=== PATIENT | female | born 1990 | race Caucasian/White ===

== ENCOUNTER 2016-04-13 18:52 | Emergency (ER) | payer MEDICAID ==
[~2016-04-13] VITALS: Ht 157.5 cm; Wt 105.5 kg
[~2016-04-13 18:52] MED LIST: ALAVERT10 M1 PO; ATOXIMETIN-B1 CAP PO; BCP TD; CORTISPORIN OTI10 ML OT; DUO-KAPS1 CAP PO; FLEXERIL 1010 MG/TAB PO; FLEXERIL10 MG PO; IBU-8800 MG PO; LORTAB 5/500 501 TAB PO; MOTRIN 600600 MG/TAB PO; MOTRIN800 MG PO; NO HOME MEDICATIONS; NORCO 325 MG-51 TAB PO; PHENERGAN 25 TA25 MG PO; PREDNISONE10 MG PO; PRENATAL VITAMI1 TAB PO; PREVACID30 MG PO; PROAIR HFA0.09 MG/AC IH; REGLAN 10MG10 MG/TAB PO; ROBAXIN 50500 MG/TAB PO; TESSALON PERLE200 MG PO; ULTRAM 50MG TAB50 MG PO; VENTOLIN0.09 MG IH; VICODIN 5/5001 UDTAB PO; WELLBUTRIN PO; ZITHROMAX Z PA250 MG PO; ZOFRAN ODT4 MG PO; ZOFRAN8 MG PO
[2016-04-13 18:54] VITALS: BP 104/58; TEMP 98
[2016-04-13] MEDS ORDERED: FLAGYL500 MG PO (18:58)
[2016-04-13] MEDS ORDERED: PRENATAL FORMU1 EAC3 PO (18:59)
[2016-04-13 21:22] LABS: PH 5 (5-8); URINE APPEARANCE Hazy; URINE BACTERIA None Seen /hpf; URINE BILIRUBIN Negative (NEGATIVE); URINE BLOOD Negative (NEGATIVE); URINE COLOR Yellow; URINE GLUCOSE Negative (NEGATIVE); URINE KETONE 2+ (NEGATIVE); URINE RBC 0-2 /hpf; URINE UROBILINOGEN Negative (NEGATIVE); URINE WBC 0-2 /hpf
[2016-04-13] MEDS ORDERED: PHENERGAN 25 TA25 MG PO (21:45)
[2016-04-13 21:59] VITALS: PULSE 96
== END 2016-04-13 21:59 | disposition home or self-care (01) ==
LOC: COL.ER 18:52
PROVIDERS: Emergency Medicine
DX: O21.9 Vomiting of pregnancy, unspecified (principal); Z3A.13 13 weeks gestation of pregnancy; R10.816 Epigastric abdominal tenderness
CPT/HCPCS: J2550; J7030

== ENCOUNTER 2016-05-01 09:10 | Emergency (ER) | payer MEDICAID ==
[~2016-05-01] VITALS: Ht 157.5 cm; Wt 105.5 kg
[~2016-05-01 09:10] MED LIST changes: +FLAGYL500 MG PO; +PRENATAL FORMU1 EAC3 PO
[2016-05-01 09:12] VITALS: TEMP 97.5
[2016-05-01] MEDS ORDERED: PRENATAL FORMU1 EAC3 PO (09:16)
[2016-05-01 10:25] LABS: HEMOGLOBIN 12.5 g/dl (12.5-16.0); MEAN CELL VOLUME 87 fl (80.0-100.0); MEAN CORPUSCULAR HEMOGLOBIN 30 pg (27.0-31.0); MEAN CORPUSCULAR HGB CONC 34 g/dl (33.0-37.0); PLATELET COUNT 217 K/mm3 (130-400); RED BLOOD COUNT 4.19 M/mm3 (4.10-5.30); REDCELL DISTRIBUTION WIDTH-CV 13.3 % (11.5-14.5)
[2016-05-01 10:30] LABS: HEMATOCRIT 36.4 % (37.0-47.0)
[2016-05-01 10:31] LABS: ADD PATHOLOGY DIFF REVIEW NO
[2016-05-01 10:33] LABS: ADJUSTED CALCIUM 9.3 mg/dL (8.4-10.2); ALBUMIN 3.9 gm/dL (3.5-5.0); BILIRUBIN,TOTAL 0.7 mg/dL (0.0-1.0); CALCIUM 9.2 mg/dL (8.4-10.2); CREATININE, serum 0.52 mg/dL (0.52-1.25); POTASSIUM 4.2 mmol/L (3.4-5.0); TOTAL PROTEIN 7.5 gm/dL (6.4-8.2)
[2016-05-01 10:55] LABS: BAND 17 % (0-10); NEUTROPHILS 78 % (42.0-75.2); PLATELET ESTIMATE NORMAL (NORMAL); TOTAL CELLS COUNTED 100
[2016-05-01 11:08] LABS: PH 5 (5-8); URINE APPEARANCE Cloudy; URINE BACTERIA Rare /hpf; URINE BILIRUBIN Negative (NEGATIVE); URINE BLOOD Negative (NEGATIVE); URINE COLOR Yellow; URINE GLUCOSE Negative (NEGATIVE); URINE KETONE Negative (NEGATIVE); URINE RBC 0-2 /hpf; URINE UROBILINOGEN Negative (NEGATIVE)
[2016-05-01] MEDS ORDERED: REGLAN 10MG10 MG/TAB PO (11:20)
[2016-05-01 11:53] VITALS: BP 112/71; PULSE 69
== END 2016-05-01 11:52 | disposition home or self-care (01) ==
LOC: COL.ER 09:10
PROVIDERS: Nurse Practitioner
DX: O99.612 Diseases of the digestive system complicating pregnancy, second trimester (principal); K52.9 Noninfective gastroenteritis and colitis, unspecified; Z3A.15 15 weeks gestation of pregnancy
CPT/HCPCS: J2765; J7030

== ENCOUNTER 2016-07-14 12:04 | Emergency (ER) | payer MEDICAID ==
[~2016-07-14] VITALS: Ht 157.5 cm; Wt 105.5 kg
[2016-07-14 12:05] VITALS: TEMP 98.8
[2016-07-14 14:58] LABS: PH 6 (5-8); URINE APPEARANCE Hazy; URINE BACTERIA Moderate /hpf; URINE BILIRUBIN Negative (NEGATIVE); URINE BLOOD Negative (NEGATIVE); URINE COLOR Yellow; URINE GLUCOSE Negative (NEGATIVE); URINE KETONE Negative (NEGATIVE); URINE RBC 0-2 /hpf; URINE UROBILINOGEN Negative (NEGATIVE)
[2016-07-14 15:03] VITALS: BP 112/64; PULSE 88
== END 2016-07-14 15:04 | disposition home or self-care (01) ==
LOC: COL.ER 12:04
PROVIDERS: Emergency Medicine
DX: O99.512 Diseases of the respiratory system complicating pregnancy, second trimester (principal); J20.9 Acute bronchitis, unspecified; Z3A.26 26 weeks gestation of pregnancy
CPT/HCPCS: J1885; J2550

== ENCOUNTER 2016-08-09 16:27 | Outpatient (CLI) | payer MEDICAID ==
[~2016-08-09] VITALS: Ht 157.5 cm; Wt 109.1 kg
[2016-08-09 17:07] VITALS: BP 117/71; PULSE 86; TEMP 98.1
[2016-08-09 17:25] VITALS: BP 117/71; PULSE 86; TEMP 98.1
== END 2016-08-09 17:25 | disposition home or self-care (01) ==
LOC: LDRO 16:27
DX: O62.2 Other uterine inertia (principal); Z3A.29 29 weeks gestation of pregnancy

== ENCOUNTER 2016-09-06 16:09 | Outpatient (CLI) | payer MEDICAID ==
[~2016-09-06] VITALS: Ht 160 cm; Wt 110.0 kg
[2016-09-06 16:32] VITALS: BP 110/59; PULSE 96; TEMP 98.9
[2016-09-06 16:59] VITALS: BP 110/59; PULSE 96; TEMP 98
== END 2016-09-06 16:57 | disposition home or self-care (01) ==
LOC: LDRO 16:09
DX: O99.89 Other specified diseases and conditions complicating pregnancy, childbirth and the puerperium (principal); R10.30 Lower abdominal pain, unspecified; Z3A.33 33 weeks gestation of pregnancy; Z87.891 Personal history of nicotine dependence

== ENCOUNTER 2016-09-11 22:21 | Outpatient (CLI) | payer MEDICAID ==
[~2016-09-11] VITALS: Ht 157.5 cm; Wt 110.9 kg
[2016-09-11 23:10] VITALS: BP 116/68; PULSE 86; TEMP 97.9
== END 2016-09-11 23:57 | disposition home or self-care (01) ==
LOC: LDRO 22:21
DX: O62.9 Abnormality of forces of labor, unspecified (principal); Z3A.39 39 weeks gestation of pregnancy

== ENCOUNTER 2016-09-18 14:23 | Outpatient (CLI) | payer MEDICAID ==
[~2016-09-18] VITALS: Ht 157.5 cm; Wt 110.9 kg
[2016-09-18 14:42] VITALS: BP 131/78; PULSE 93; TEMP 99
[2016-09-18 15:00] VITALS: BP 131/78; PULSE 93; TEMP 99
[2016-09-18 15:37] VITALS: BP 132/75; PULSE 86
== END 2016-09-18 15:40 | disposition home or self-care (01) ==
LOC: LDRO 14:23 → LDR 14:25 → LDRO 15:40
DX: Z34.83 Encounter for supervision of other normal pregnancy, third trimester (principal); Z87.891 Personal history of nicotine dependence; Z3A.35 35 weeks gestation of pregnancy
CPT/HCPCS: OP

== ENCOUNTER 2016-09-18 22:00 | Outpatient (CLI) | payer MEDICAID ==
[~2016-09-18] VITALS: Ht 157.5 cm; Wt 110.9 kg
[2016-09-18 22:30] VITALS: BP 124/74; PULSE 69; TEMP 98
[2016-09-18 23:31] LABS: PH 6 (5-8); URINE APPEARANCE Hazy; URINE BACTERIA None Seen /hpf; URINE BILIRUBIN Negative (NEGATIVE); URINE BLOOD 2+ (NEGATIVE); URINE COLOR Yellow; URINE GLUCOSE Negative (NEGATIVE); URINE KETONE Negative (NEGATIVE); URINE RBC 20-50 /hpf; URINE UROBILINOGEN Negative (NEGATIVE)
[2016-09-19 01:30] VITALS: BP 123/74; PULSE 60; TEMP 97.8
== END 2016-09-19 02:05 | disposition home or self-care (01) ==
LOC: LDRO 22:00
PROVIDERS: Obstetrics & Gynecology
DX: O99.89 Other specified diseases and conditions complicating pregnancy, childbirth and the puerperium (principal); R10.30 Lower abdominal pain, unspecified; M54.9 Dorsalgia, unspecified; Z3A.35 35 weeks gestation of pregnancy
CPT/HCPCS: J2550; J7120

== ENCOUNTER → 2016-09-19 | Outpatient (CLI) | payer MEDICAID ==
[~2016-09-19] MED LIST changes: +IBU600 MG PO
== END ==
LOC: COL.RAD 12:40
DX: R31.21 Asymptomatic microscopic hematuria (principal); N13.30 Unspecified hydronephrosis

== ENCOUNTER 2016-09-24 05:27 | Inpatient (IN) | payer MEDICAID ==
[~2016-09-24] VITALS: Ht 157.5 cm; Wt 110.9 kg
[2016-09-24] VITALS (21 sets, daily range): BP systolic 91–139; BP diastolic 36–81; PULSE 62–85; TEMP 97.3–98.2
[~2016-09-24 05:27] MED LIST changes: -IBU600 MG PO
[2016-09-24 07:35] LABS: BASO % 0.3 % (0.0-2.0); EOS # 0.1 (0.0-0.7); EOS % 0.5 % (0-4.0); GRAN # 11.7 (1.4-6.5); LYMPH # 2.1 (1.2-3.4); LYMPH % 14.5 % (20.0-51.0); MEAN CELL VOLUME 86 fl (80.0-100.0); MEAN CORPUSCULAR HGB CONC 34 g/dl (33.0-37.0); MEAN PLATELET VOLUME 11.7 fl (7.4-10.4); MONO # 0.6 (0.1-0.6); MONO % 3.9 % (1.7-9.3); PLATELET COUNT 173 K/mm3 (130-400); REDCELL DISTRIBUTION WIDTH-CV 13.5 % (11.5-14.5); WHITE BLOOD COUNT 14.6 K/mm3 (4.8-10.8)
[2016-09-24 07:50] LABS: HEMATOCRIT 33.4 % (37.0-47.0); HEMOGLOBIN 11.5 g/dl (12.5-16.0); MEAN CORPUSCULAR HEMOGLOBIN 29 pg (27.0-31.0)
[2016-09-25 03:00] VITALS: BP 123/69; PULSE 72; TEMP 98.1
[2016-09-25 08:30] VITALS: BP 117/75; PULSE 65; TEMP 97.5
[2016-09-25 16:00] VITALS: BP 117/72; PULSE 74; TEMP 97.5
[2016-09-25 21:00] VITALS: BP 123/78; PULSE 70; TEMP 98.8
[2016-09-26 08:55] VITALS: BP 120/78; PULSE 92; TEMP 98.1
[2016-09-26] MEDS ORDERED: IBU600 MG PO (09:39)
[2016-09-26 19:45] VITALS: BP 122/80; PULSE 79; TEMP 98.4
== END 2016-09-26 20:00 | disposition home or self-care (01) | DRG 775 ==
LOC: LDRO 05:27 → LDR 07:03 → OB 18:20
PROVIDERS: Obstetrics & Gynecology
PROC: 10E0XZZ Delivery of Products of Conception, External Approach (ICD-10-PCS; principal; 2016-09-24)
PROC: 0HQ9XZZ Repair Perineum Skin, External Approach (ICD-10-PCS; 2016-09-24)
DX: O60.14X0 Preterm labor third trimester with preterm delivery third trimester, not applicable or unspecified (principal); O70.0 First degree perineal laceration during delivery; Z3A.36 36 weeks gestation of pregnancy; Z37.0 Single live birth
CPT/HCPCS: J0690; J2590; J2795; J7120

== ENCOUNTER 2017-03-10 13:33 | Emergency (ER) | payer SELFPAY ==
[~2017-03-10] VITALS: Ht 157.5 cm; Wt 104.5 kg
[~2017-03-10 13:33] MED LIST changes: +IBU600 MG PO
[2017-03-10 13:35] VITALS: TEMP 98.2
[2017-03-10 13:57] LABS: COLLECTION METHOD CLEAN CATCH
[2017-03-10 14:02] LABS: MUCOUS Present /lpf; PH 5 (5-8); SQUAMOUS EPITHELIAL 0-2 /hpf; URINE APPEARANCE Clear; URINE BACTERIA Rare /hpf; URINE BILIRUBIN Negative (NEGATIVE); URINE BLOOD 3+ (NEGATIVE); URINE COLOR Yellow; URINE GLUCOSE Negative (NEGATIVE); URINE KETONE Negative (NEGATIVE); URINE LEUKOCYTE ESTERASE Negative (NEGATIVE); URINE NITRATE Negative (NEGATIVE); URINE PROTEIN(semi-quant) Negative (NEGATIVE); URINE UROBILINOGEN Negative (NEGATIVE)
[2017-03-10 15:19] LABS: BASO % 0.2 % (0.0-2.0); EOS # 0.3 (0.0-0.7); EOS % 3.1 % (0-4.0); GRAN # 5.5 (1.4-6.5); GRAN % 61.7 % (42.2-75.2); HEMATOCRIT 40.9 % (37.0-47.0); HEMOGLOBIN 13.3 g/dl (12.5-16.0); LYMPH # 2.7 (1.2-3.4); MEAN CELL VOLUME 84 fl (80.0-100.0); MEAN CORPUSCULAR HEMOGLOBIN 27 pg (27.0-31.0); MEAN CORPUSCULAR HGB CONC 33 g/dl (33.0-37.0); MEAN PLATELET VOLUME 10.8 fl (7.4-10.4); MONO # 0.4 (0.1-0.6); MONO % 4.8 % (1.7-9.3); PLATELET COUNT 247 K/mm3 (130-400); RED BLOOD COUNT 4.87 M/mm3 (4.10-5.30); REDCELL DISTRIBUTION WIDTH-CV 14.4 % (11.5-14.5)
[2017-03-10 15:43] LABS: ALBUMIN 4.5 gm/dL (3.5-5.0); BILIRUBIN,TOTAL 0.2 mg/dL (0.0-1.0); C-REACTIVE PROTEIN 0.6 mg/dL (0.0-0.9); CALCIUM 9.6 mg/dL (8.4-10.2); CREATININE, serum 0.74 mg/dL (0.52-1.25); POTASSIUM 4.2 mmol/L (3.4-5.0); TOTAL PROTEIN 7.7 gm/dL (6.4-8.2)
[2017-03-10] MEDS ORDERED: ZOFRAN ODT4 MG PO (17:09)
[2017-03-10 17:35] VITALS: BP 120/82; PULSE 64
== END 2017-03-10 17:35 | disposition home or self-care (01) ==
LOC: COL.ER 13:33
PROVIDERS: Nurse Practitioner
DX: R10.30 Lower abdominal pain, unspecified (principal); F32.9 Major depressive disorder, single episode, unspecified; F17.210 Nicotine dependence, cigarettes, uncomplicated; Z90.49 Acquired absence of other specified parts of digestive tract
CPT/HCPCS: J1885; J2405; J7030

== ENCOUNTER 2018-09-08 08:30 | Emergency (ER) | payer MEDICAID ==
[~2018-09-08] VITALS: Ht 160 cm; Wt 109.1 kg
[2018-09-08 08:41] VITALS: TEMP 97.3
[2018-09-08] MEDS ORDERED: FLEXERIL 1010 MG/TAB PO (09:06)
[2018-09-08 09:34] VITALS: BP 108/64; PULSE 68
== END 2018-09-08 09:38 | disposition home or self-care (01) ==
LOC: COL.ER 08:30
DX: M54.5 Low back pain (principal); Z90.49 Acquired absence of other specified parts of digestive tract

== ENCOUNTER 2018-09-25 10:36 | Emergency (ER) | payer MEDICAID ==
[~2018-09-25] VITALS: Ht 160 cm; Wt 108.2 kg
[2018-09-25 11:20] LABS: COLLECTION METHOD CLEAN CATCH
[2018-09-25 11:28] LABS: BASO % 0.2 % (0.0-2.0); EOS # 0.1 (0.0-0.7); EOS % 0.8 % (0-4.0); GRAN # 7.4 (1.4-6.5); GRAN % 77.1 % (42.2-75.2); HEMATOCRIT 38.7 % (37.0-47.0); HEMOGLOBIN 13.1 g/dl (12.5-16.0); LYMPH # 1.7 (1.2-3.4); LYMPH % 17.5 % (20.0-51.0); MEAN CELL VOLUME 89 fl (80.0-100.0); MEAN CORPUSCULAR HEMOGLOBIN 30 pg (27.0-31.0); MEAN CORPUSCULAR HGB CONC 34 g/dl (33.0-37.0); MEAN PLATELET VOLUME 10.4 fl (7.4-10.4); MONO # 0.4 (0.1-0.6); MONO % 4.2 % (1.7-9.3); PLATELET COUNT 219 K/mm3 (130-400); RED BLOOD COUNT 4.36 M/mm3 (4.10-5.30); REDCELL DISTRIBUTION WIDTH-CV 13.2 % (11.5-14.5)
[2018-09-25 11:34] LABS: MUCOUS Present /lpf; PH 5 (5-8); URINE APPEARANCE Cloudy; URINE BACTERIA None Seen /hpf; URINE BILIRUBIN Negative (NEGATIVE); URINE BLOOD Negative (NEGATIVE); URINE COLOR Yellow; URINE GLUCOSE Negative (NEGATIVE); URINE KETONE Negative (NEGATIVE); URINE LEUKOCYTE ESTERASE Negative (NEGATIVE); URINE NITRATE Negative (NEGATIVE); URINE PROTEIN(semi-quant) 1+ (NEGATIVE); URINE UROBILINOGEN Negative (NEGATIVE)
[2018-09-25 11:41] LABS: ALBUMIN 4.1 gm/dL (3.5-5.0); BILIRUBIN,TOTAL 0.5 mg/dL (0.0-1.0); C-REACTIVE PROTEIN 1.2 mg/dL (0.0-0.9); CALCIUM 9.1 mg/dL (8.4-10.2); CREATININE, serum 0.54 (0.52-1.25); POTASSIUM 3.7 mmol/L (3.4-5.0); TOTAL PROTEIN 7.3 gm/dL (6.4-8.2)
[2018-09-25] MEDS ORDERED: MACROBID 1100 MG/CAP PO (13:53)
[2018-09-25] MEDS ORDERED: ANTIVERT 12.512.5 MG PO (13:53)
[2018-09-25 14:35] VITALS: BP 111/60; PULSE 65; TEMP 98
== END 2018-09-25 14:35 | disposition home or self-care (01) ==
LOC: COL.ER 10:36
PROVIDERS: Physician Assistant
DX: R11.10 Vomiting, unspecified (principal); R42 Dizziness and giddiness; F32.9 Major depressive disorder, single episode, unspecified; Z90.49 Acquired absence of other specified parts of digestive tract; Z87.891 Personal history of nicotine dependence
CPT/HCPCS: J2405; J7030

== ENCOUNTER 2018-12-03 10:08 | Emergency (ER) | payer MEDICAID ==
[~2018-12-03] VITALS: Ht 160 cm; Wt 107.7 kg
[~2018-12-03 10:08] MED LIST changes: +ANTIVERT 12.512.5 MG PO; +MACROBID 1100 MG/CAP PO
[2018-12-03] MEDS ORDERED: PRENATAL VITAMI1 TA3 PO (10:20)
[2018-12-03 10:42] LABS: BASO % 0.3 % (0.0-2.0); EOS # 0.1 (0.0-0.7); EOS % 2.1 % (0-4.0); GRAN # 3.5 (1.4-6.5); GRAN % 55.8 % (42.2-75.2); HEMOGLOBIN 11.8 g/dl (12.5-16.0); LYMPH # 2.2 (1.2-3.4); LYMPH % 35.7 % (20.0-51.0); MEAN CELL VOLUME 90 fl (80.0-100.0); MEAN CORPUSCULAR HEMOGLOBIN 30 pg (27.0-31.0); MEAN CORPUSCULAR HGB CONC 33 g/dl (33.0-37.0); MEAN PLATELET VOLUME 10.6 fl (7.4-10.4); MONO # 0.4 (0.1-0.6); MONO % 5.9 % (1.7-9.3); PLATELET COUNT 181 K/mm3 (130-400); RED BLOOD COUNT 3.98 M/mm3 (4.10-5.30); REDCELL DISTRIBUTION WIDTH-CV 13.3 % (11.5-14.5)
[2018-12-03 10:46] LABS: HEMATOCRIT 35.7 % (37.0-47.0)
[2018-12-03 10:53] LABS: ALBUMIN 3.4 gm/dL (3.5-5.0); BILIRUBIN,TOTAL 0.4 mg/dL (0.0-1.0); CALCIUM 8.1 mg/dL (8.4-10.2); CREATININE, serum 0.48 (0.52-1.25); POTASSIUM 3.9 mmol/L (3.4-5.0); TOTAL PROTEIN 6.2 gm/dL (6.4-8.2)
[2018-12-03 14:00] VITALS: BP 117/64; PULSE 60; TEMP 98.4
== END 2018-12-03 14:00 | disposition home or self-care (01) ==
LOC: COL.ER 10:08
PROVIDERS: Emergency Medicine
DX: O26.891 Other specified pregnancy related conditions, first trimester (principal); R10.2 Pelvic and perineal pain; Z3A.08 8 weeks gestation of pregnancy; Z90.89 Acquired absence of other organs

== ENCOUNTER 2018-12-21 10:09 | Emergency (ER) | payer MEDICAID ==
[~2018-12-21] VITALS: Ht 160 cm; Wt 109.1 kg
[~2018-12-21 10:09] MED LIST changes: +PRENATAL VITAMI1 TA3 PO
[2018-12-21 10:13] VITALS: BP 114/77; TEMP 97.6
[2018-12-21 11:07] VITALS: PULSE 101
== END 2018-12-21 11:07 | disposition home or self-care (01) ==
LOC: COL.ER 10:09
DX: B99.9 Unspecified infectious disease (principal); H10.89 Other conjunctivitis

== ENCOUNTER 2018-12-22 18:04 | Emergency (ER) | payer MEDICAID ==
[~2018-12-22] VITALS: Ht 160 cm; Wt 109.1 kg
[2018-12-22 18:16] VITALS: TEMP 98.4
[2018-12-22 18:50] LABS: BASO % 0.4 % (0.0-2.0); EOS # 0.2 (0.0-0.7); EOS % 1.9 % (0-4.0); GRAN % 60.2 % (42.2-75.2); HEMATOCRIT 40.9 % (37.0-47.0); HEMOGLOBIN 13.8 g/dl (12.5-16.0); LYMPH # 2.5 (1.2-3.4); LYMPH % 30.4 % (20.0-51.0); MEAN CELL VOLUME 89 fl (80.0-100.0); MEAN CORPUSCULAR HEMOGLOBIN 30 pg (27.0-31.0); MEAN CORPUSCULAR HGB CONC 34 g/dl (33.0-37.0); MEAN PLATELET VOLUME 10.8 fl (7.4-10.4); MONO # 0.6 (0.1-0.6); MONO % 6.9 % (1.7-9.3); PLATELET COUNT 217 K/mm3 (130-400); RED BLOOD COUNT 4.59 M/mm3 (4.10-5.30); REDCELL DISTRIBUTION WIDTH-CV 13.1 % (11.5-14.5)
[2018-12-22 19:00] LABS: ALBUMIN 4.7 gm/dL (3.5-5.0); BILIRUBIN,TOTAL 0.6 mg/dL (0.0-1.0); CALCIUM 9.6 mg/dL (8.4-10.2); CREATININE, serum 0.54 (0.52-1.25); POTASSIUM 3.8 mmol/L (3.4-5.0); TOTAL PROTEIN 8.2 gm/dL (6.4-8.2)
[2018-12-22 21:32] VITALS: BP 121/72; PULSE 85
== END 2018-12-22 21:32 | disposition home or self-care (01) ==
LOC: COL.ER 18:04
PROVIDERS: Emergency Medicine
DX: O03.9 Complete or unspecified spontaneous abortion without complication (principal)
CPT/HCPCS: J7030

== ENCOUNTER 2019-02-07 21:11 | Emergency (ER) | payer SELFPAY ==
[~2019-02-07] VITALS: Ht 157.5 cm; Wt 107.3 kg
[2019-02-07 21:39] LABS: BASO % 0.3 % (0.0-2.0); EOS # 0.1 (0.0-0.7); EOS % 0.7 % (0-4.0); GRAN # 12.8 (1.4-6.5); GRAN % 88.4 % (42.2-75.2); HEMATOCRIT 41.5 % (37.0-47.0); HEMOGLOBIN 13.8 g/dl (12.5-16.0); LYMPH # 0.9 (1.2-3.4); LYMPH % 6.5 % (20.0-51.0); MEAN CELL VOLUME 89 fl (80.0-100.0); MEAN CORPUSCULAR HEMOGLOBIN 30 pg (27.0-31.0); MEAN CORPUSCULAR HGB CONC 33 g/dl (33.0-37.0); MEAN PLATELET VOLUME 10.8 fl (7.4-10.4); MONO # 0.6 (0.1-0.6); MONO % 3.8 % (1.7-9.3); PLATELET COUNT 218 K/mm3 (130-400); RED BLOOD COUNT 4.67 M/mm3 (4.10-5.30); REDCELL DISTRIBUTION WIDTH-CV 13.1 % (11.5-14.5)
[2019-02-07 22:04] LABS: ALBUMIN 4.4 gm/dL (3.5-5.0); BILIRUBIN,TOTAL 0.6 mg/dL (0.0-1.0); CREATININE, serum 0.66 (0.52-1.25); POTASSIUM 3.8 mmol/L (3.4-5.0); TOTAL PROTEIN 7.7 gm/dL (6.4-8.2)
[2019-02-07] MEDS ORDERED: ZOFRAN ODT4 MG PO (23:11)
[2019-02-07 23:37] VITALS: BP 111/59; PULSE 66; TEMP 98.2
== END 2019-02-07 21:40 | disposition home or self-care (01) ==
LOC: COL.ER 21:11
PROVIDERS: Emergency Medicine
DX: R11.2 Nausea with vomiting, unspecified (principal); R19.7 Diarrhea, unspecified; Z90.49 Acquired absence of other specified parts of digestive tract; Z88.0 Allergy status to penicillin; Z88.2 Allergy status to sulfonamides
CPT/HCPCS: J2405; J2550; J7030

== ENCOUNTER 2019-02-23 12:42 | Emergency (ER) | payer MEDICAID ==
[~2019-02-23] VITALS: Ht 157.5 cm; Wt 106.8 kg
[2019-02-23 13:01] VITALS: BP 158/58; PULSE 67; TEMP 98.3
== END 2019-02-23 13:31 | disposition left against medical advice (07) ==
LOC: COL.ER 12:42
DX: R11.10 Vomiting, unspecified (principal)

== ENCOUNTER → 2019-03-17 | Emergency (ER) | payer MEDICAID ==
[~2019-03-17] VITALS: Ht 157.5 cm; Wt 107.7 kg
[2019-03-17 15:05] VITALS: BP 111/72; PULSE 89; TEMP 98.8
== END ==
LOC: COL.ER 14:42
DX: R53.81 Other malaise (principal)

== ENCOUNTER 2019-03-30 08:35 | Emergency (ER) | payer MEDICAID ==
[~2019-03-30] VITALS: Ht 157.5 cm; Wt 106.8 kg
[2019-03-30] MEDS ORDERED: TAMIFLU 75MG75 MG PO ×2 (09:33→09:34)
[2019-03-30 09:45] VITALS: BP 106/57; PULSE 84; TEMP 98.2
== END 2019-03-30 09:45 | disposition home or self-care (01) ==
LOC: COL.ER 08:35
DX: J11.1 Influenza due to unidentified influenza virus with other respiratory manifestations (principal)

== ENCOUNTER 2019-10-07 12:00 | Inpatient (IN) | payer MEDICAID ==
[~2019-10-07] VITALS: Ht 157.5 cm; Wt 115.5 kg
[2019-10-07] VITALS (25 sets, daily range): BP systolic 118–163; BP diastolic 57–95; PULSE 51–84; TEMP 98.2–98.4
[~2019-10-07 12:00] MED LIST changes: +TAMIFLU 75MG75 MG PO
--- NOTE | 2019-10-07 12:05 | NUR ---
Patient ambulatory to unit with sister. Patient states she has had some spotting on her toilet paper when she wipes and feeling come contractions. State she is losing her mucous plug also. Patient denies any leaking of fluid and states baby is active. FHR and contraction monitors placed and explained. Assessment completed. SVE 3-4100/-2, bulgy bag of thompson, unknown presentation. Dr. Montes called and orders received. 1228: Roles at bedside and bedside ultrasound verifies vertex position.
--- NOTE | 2019-10-07 13:45 | NUR ---
Patient uncomfortable and breathing through contractions. Dr. Montes at nurses station and reviews FHR and contractions on monitor. Dr. Montes at bedside. SVe 3- per Dr. Montes. Plan of care discussed with patient. Will continue with admit and will recheck cervix after surgery.
[2019-10-07 14:22] LABS: BASO % 0.2 % (0.0-2.0); EOS # 0.1 (0.0-0.7); EOS % 1.1 % (0-4.0); GRAN % 71.5 % (42.2-75.2); HEMOGLOBIN 11.3 g/dl (12.5-16.0); LYMPH # 2.1 (1.2-3.4); LYMPH % 21.1 % (20.0-51.0); MEAN CELL VOLUME 88 fl (80.0-100.0); MEAN CORPUSCULAR HEMOGLOBIN 29 pg (27.0-31.0); MEAN CORPUSCULAR HGB CONC 33 g/dl (33.0-37.0); MEAN PLATELET VOLUME 11.7 fl (7.4-10.4); MONO # 0.6 (0.1-0.6); MONO % 5.7 % (1.7-9.3); PLATELET COUNT 162 K/mm3 (130-400); RED BLOOD COUNT 3.88 M/mm3 (4.10-5.30); REDCELL DISTRIBUTION WIDTH-CV 14.2 % (11.5-14.5)
--- NOTE | 2019-10-07 15:03 | NUR ---
1500: Dr. Montes at nurses station and reviews FHR and contraction pattern. Dr. Montes at bedside, SVE 5-6/100, AROM with small amount of clear fluid noted. FHR scalp stimulation noted with SVE and AROM. Pericare provided. Patient requesting an epidural. Justin Meek CRNA at nurses station and notified of request.
--- NOTE | 2019-10-07 15:31 | NUR ---
1525: Patient sitting up at side of bed for epidural placement. Justin Meek CRNA in room and epidural explained and health hx reviewed. 1531: Epidural catheter placed. 1533: Epidural test dose given, no reaction to test dose. Epidural taped and secured to patients back. Patient repositioned and resting in bed wedged left at 1540 See anesthesia records.
--- NOTE | 2019-10-07 16:18 | NUR ---
Gaitan catheter placed using sterile technique. Patient tolerates well.
--- NOTE | 2019-10-07 17:00 | NUR ---
1700: Dr. Montes at bedside and SVE /+2. Patient prepped for delivery. 1707: Spontaneous vaginal delivery of head immediately followed by infant body. Infant to mother's abdomen where attended to by Sahra Jensen RN. 1713: Spontaneous and intact delivery of placenta. Pitocin started at 333ml/hr. Perineum intact. Pericare provided. Fundus massaged, firm and at umbilicus. See labor and delivery summary, doctor dictation and anesthesia records.
[2019-10-08 04:40] VITALS: BP 120/73; PULSE 69; TEMP 98.7
[2019-10-08 07:20] VITALS: BP 127/82; PULSE 66; TEMP 97.5
--- NOTE | 2019-10-08 10:12 | NUR ---
Initial visit; Patient thanked Fish Culturist for offering congratulations and God's blessings for the of her son. Fish Culturist thanked patient for choosing [facility].
[2019-10-08 16:13] VITALS: BP 136/76; PULSE 62; TEMP 97.8
[2019-10-08 20:00] VITALS: BP 133/84; PULSE 67; TEMP 97.9
[2019-10-09] MEDS ORDERED: MOTRIN 600600 MG/TAB PO (08:21)
[2019-10-09 09:15] VITALS: BP 139/85; PULSE 56; TEMP 98.2
--- NOTE | 2019-10-09 17:29 | NUR ---
1630 DISCHARGE INSTRUCTIONS REVIEWED WITH PATIENT. PATIENT VERBALIZED UNDERSTANDING. ALL QUESTIONS ANSWERED. 1645 ALL PERSONAL BELONGINGS GATHERED FROM PATIENT ROOM. PATIENT LEFT AMBULATORY AND IN NO APPARENT DISTRESS. PATIENT ACCOMPANIED BY SISTER AND THIS RN.
== END 2019-10-09 16:45 | disposition home or self-care (01) | DRG 807 ==
LOC: LDRO 12:00 → LDR 13:52 → OB 13:52
PROVIDERS: Obstetrics & Gynecology; ADMIT Obstetrics & Gynecology
PROC: 10E0XZZ Delivery of Products of Conception, External Approach (ICD-10-PCS; principal; 2019-10-07)
PROC: 10907ZC Drainage of Amniotic Fluid, Therapeutic from Products of Conception, Via Natural or Artificial Opening (ICD-10-PCS; 2019-10-07)
DX: O60.14X0 Preterm labor third trimester with preterm delivery third trimester, not applicable or unspecified (principal); Z37.0 Single live birth; O99.02 Anemia complicating childbirth; D64.9 Anemia, unspecified; Z3A.36 36 weeks gestation of pregnancy
CPT/HCPCS: J2590; J7120

== ENCOUNTER → 2019-12-25 | Outpatient (CLI) | payer MEDICAID | LOC: ZCOL.LAB 15:45 | DX: U07.1 COVID-19 (principal) ==

== ENCOUNTER 2020-07-29 08:25 | Emergency (ER) | payer MEDICAID ==
[~2020-07-29] VITALS: Ht 157.5 cm; Wt 110.9 kg
[2020-07-29 08:30] VITALS: TEMP 97.8
[2020-07-29 09:14] LABS: BASO % 0.2 % (0.0-2.0); EOS # 0.1 (0.0-0.7); EOS % 1.3 % (0-4.0); GRAN # 5.5 (1.4-6.5); GRAN % 66.1 % (42.2-75.2); HEMATOCRIT 37.8 % (37.0-47.0); HEMOGLOBIN 12.5 g/dl (12.5-16.0); LYMPH # 2.3 (1.2-3.4); LYMPH % 27.4 % (20.0-51.0); MEAN CELL VOLUME 86 fl (80.0-100.0); MEAN CORPUSCULAR HEMOGLOBIN 29 pg (27.0-31.0); MEAN CORPUSCULAR HGB CONC 33 g/dl (33.0-37.0); MEAN PLATELET VOLUME 10.4 fl (7.4-10.4); MONO # 0.4 (0.1-0.6); MONO % 4.8 % (1.7-9.3); PLATELET COUNT 208 K/mm3 (130-400); RED BLOOD COUNT 4.38 M/mm3 (4.10-5.30); REDCELL DISTRIBUTION WIDTH-CV 14.2 % (11.5-14.5)
[2020-07-29 09:22] LABS: COLLECTION METHOD CLEAN CATCH
[2020-07-29 09:23] LABS: ALBUMIN 3.9 gm/dL (3.5-5.0); BILIRUBIN,TOTAL 0.4 mg/dL (0.0-1.0); CALCIUM 8.8 mg/dL (8.4-10.2); CREATININE, serum 0.48 (0.52-1.25); POTASSIUM 3.8 mmol/L (3.4-5.0); TOTAL PROTEIN 7.1 gm/dL (6.4-8.2)
[2020-07-29 09:33] LABS: MUCOUS Present /lpf; PH 6 (5-8); URINE APPEARANCE Hazy; URINE BACTERIA Moderate /hpf; URINE BILIRUBIN Negative (NEGATIVE); URINE BLOOD Negative (NEGATIVE); URINE COLOR Yellow; URINE GLUCOSE Negative (NEGATIVE); URINE KETONE Negative (NEGATIVE); URINE LEUKOCYTE ESTERASE Negative (NEGATIVE); URINE NITRATE Negative (NEGATIVE); URINE PROTEIN(semi-quant) Negative (NEGATIVE); URINE RBC 0-2 /hpf; URINE UROBILINOGEN Negative (NEGATIVE)
[2020-07-29] MEDS ORDERED: PHENERGAN 25 TA25 MG PO (10:33)
[2020-07-29 10:45] VITALS: BP 99/61; PULSE 62
== END 2020-07-29 10:45 | disposition home or self-care (01) ==
LOC: COL.ER 08:25
PROVIDERS: Family Medicine
DX: O21.9 Vomiting of pregnancy, unspecified (principal); Z3A.01 Less than 8 weeks gestation of pregnancy; Z90.49 Acquired absence of other specified parts of digestive tract
CPT/HCPCS: J2550; J7120

== ENCOUNTER 2020-12-19 21:37 | Outpatient (CLI) | payer MEDICAID ==
[~2020-12-19] VITALS: Ht 157.5 cm; Wt 108.6 kg
[2020-12-19 22:34] LABS: COLLECTION METHOD CLEAN CATCH
[2020-12-19 22:44] LABS: MUCOUS Present /lpf; PH 5 (5-8); URINE APPEARANCE Hazy; URINE BACTERIA Occasional /hpf; URINE BILIRUBIN Negative (NEGATIVE); URINE BLOOD Negative (NEGATIVE); URINE COLOR Yellow; URINE GLUCOSE Negative (NEGATIVE); URINE KETONE Negative (NEGATIVE); URINE LEUKOCYTE ESTERASE Trace (NEGATIVE); URINE NITRATE Negative (NEGATIVE); URINE PROTEIN(semi-quant) Negative (NEGATIVE); URINE UROBILINOGEN Negative (NEGATIVE)
[2020-12-19 22:55] VITALS: BP 103/53; PULSE 61; TEMP 97.7
--- NOTE | 2020-12-19 23:10 | NUR ---
2200 - PT ARRIVES AMBULATORY TO FLOOR. CHANGES INTO GOWN, EFM EXPLAINED AND PLACED, VITALS TAKEN. PT REPORTS STRESS AT HOME, FEELING OF VAGINAL PRESSURE WITH URGE TO URINATE THAT DOES NOT GO AWAY. PT REPORTS GUSH OF FLUID THAT SHE DID NOT THINK WAS URINE AT ABOUT 1900, AND REPORTS OCCASIONAL SPOTTING OVER THE LAST FEW DAYS. 2209 - AMNISURE DONE, NEGATIVE RESULT. 2213 - SVE CLOSED/THICK/HIGH 2214 - DR. PRIEST NOTIFIED. ORDERS OBTAINED TO GET UA. 2251 - UA RESULTS CALLED TO DR. PRIEST. ORDERS OBTAINED TO DISCHARGE PT TO HOME.
== END 2020-12-19 23:06 | disposition home or self-care (01) ==
LOC: LDRO 21:37 → LDR 22:20 → LDRO 23:06
PROVIDERS: Obstetrics & Gynecology
DX: O26.893 Other specified pregnancy related conditions, third trimester (principal); R10.2 Pelvic and perineal pain; R11.2 Nausea with vomiting, unspecified; Z3A.27 27 weeks gestation of pregnancy
CPT/HCPCS: OP

== ENCOUNTER 2021-01-01 11:42 | Outpatient (CLI) | payer MEDICAID ==
[~2021-01-01] VITALS: Ht 157.5 cm; Wt 111.4 kg
--- NOTE | 2021-01-01 11:55 | NUR ---
Pt arrived on unit ambulatory and with complaints of feeling vaginal pressure. Pt reports some "stomach tightening" but not consistently, denies any leaking of fluid or vaginal bleeding and reports normal movement. EFM and toco monitors started. Vital signs WNL. SVE by this RN fingertip in OS but rest of cervix closed/thick/high. Information reviewed with Dr. Trinh. See phyician notification for details. Plan of care for labor assessment reviewed with pt and mother at the bedside.
[2021-01-01] MEDS ORDERED: NATURAL IRON65 MG (12:24)
[2021-01-01 12:50] VITALS: BP 137/55; PULSE 78; TEMP 97.9
--- NOTE | 2021-01-01 13:15 | NUR ---
Pt reports feeling less vaginal pressure and tightening. SVE done with no change. Information reviewed with Dr. Trinh.
[2021-01-01 13:51] VITALS: BP 111/53; PULSE 60
== END 2021-01-01 14:00 | disposition home or self-care (01) ==
LOC: LDRO 11:42 → LDR 12:19 → LDRO 14:00
DX: O26.893 Other specified pregnancy related conditions, third trimester (principal); R10.2 Pelvic and perineal pain; Z3A.28 28 weeks gestation of pregnancy
CPT/HCPCS: OP

== ENCOUNTER 2021-01-16 20:20 | Outpatient (CLI) | payer MEDICAID ==
[~2021-01-16] VITALS: Ht 157.5 cm; Wt 111.4 kg
[~2021-01-16 20:20] MED LIST changes: +NATURAL IRON65 MG
--- NOTE | 2021-01-16 20:25 | NUR ---
G5L2. 31.0. Ambulatory to LDR 5 with sister. Clean gown on. EFM and TOCO explained and applied. Pt states she has been cramping/having contractions for the past couple of hours but states they are getting closer together. Reports contractions 5-7 mins apart, denies leaking of fluids. Reports decreased movement today. Pt denies drinking a lot of fluids and reports the last time she ate was at 0930 this morning and only reports eating a granola bar. Plan of care explained to pt who verbalizes her understanding. 2114: called and updated on pts status. See physican notification.
[2021-01-16 21:00] VITALS: BP 116/63; PULSE 90; TEMP 98.1
--- NOTE | 2021-01-16 21:45 | NUR ---
SVE unchanged. Pt states to this RN that she thinks all these symptoms are due to stress. Pt states her and her family were kicked out of their apartment today and thinks she will be able to stay at her step-mothers house [facility]. Pt states they hear from a potential new apartment tomorrow if they can move in there. danette is at her step-mothers with her other 2 kids. Pts sister lives with her and is supportive. 2205: Discharge instructions given to pt. Denies any questions or concerns at this time. Pt ambulatory off unit and home with sister.
== END 2021-01-16 22:05 | disposition home or self-care (01) ==
LOC: LDRO 20:20 → LDR 21:05 → LDRO 22:05
DX: O62.9 Abnormality of forces of labor, unspecified (principal); Z3A.00 Weeks of gestation of pregnancy not specified
CPT/HCPCS: OP

== ENCOUNTER 2021-02-13 13:15 | Outpatient (CLI) | payer MEDICAID ==
[~2021-02-13] VITALS: Ht 157.5 cm; Wt 113.6 kg
[2021-02-13 13:30] VITALS: BP 119/63; PULSE 88; TEMP 98.4
--- NOTE | 2021-02-13 13:42 | NUR ---
1330 PATIENT HERE FOR COMPLAINTS OF CONTRACTIONS THAT ARE GETTING STRONG AND LOTS OF PRESSURE. EFM ON FHT 130 BABY VERY ACTIVE WITH GOOD ACCELERATIONS NOTED. NO CONTRACTIONS ON MONITOR OR PALPATED. SVE BY A VONDA RN, /HIGH. AMNIOTRACE NEGATIVE BY A VONDA. DR HUNTER CALLED AND UPDATED. ORDERS TO WATCH FOR HOUR IF NO CHANGES SEND HOME
[2021-02-13 14:30] VITALS: BP 95/47; PULSE 81
--- NOTE | 2021-02-13 14:40 | NUR ---
1430 SVE BY A VONDA RN. SVE UNCHANGED. DR HUNTER CALLED AND ORDERS TO DISMISS TO HOME WITH VERBAL UNDERSTANDING NOTED. PATIENT UPSET BUT DISMISS TO POV.
== END 2021-02-13 14:40 | disposition home or self-care (01) ==
LOC: LDRO 13:15
DX: O62.9 Abnormality of forces of labor, unspecified (principal); Z3A.35 35 weeks gestation of pregnancy

== ENCOUNTER 2021-02-14 14:14 | Outpatient (CLI) | payer MEDICAID ==
--- NOTE | 2021-02-14 14:15 | NUR ---
Presents to the labor and delivery unit. States having contractions. Assessment done questions offered and answered.
[2021-02-14 14:30] VITALS: BP 115/71; PULSE 97; TEMP 97.8
[2021-02-14 14:45] VITALS: BP 110/59; PULSE 90
[2021-02-14 15:00] VITALS: BP 101/51; PULSE 94
--- NOTE | 2021-02-14 15:00 | NUR ---
Dr. Hills told about patient being here. Showed him the monitor strip. Let him know that patient dilated to three, 50%, minus three. States patient can go home. 1510 Discharge instructions given, verbalizes understanding.
== END 2021-02-14 15:15 | disposition home or self-care (01) ==
LOC: LDRO 14:14
DX: O62.9 Abnormality of forces of labor, unspecified (principal); Z3A.35 35 weeks gestation of pregnancy

== ENCOUNTER 2021-02-18 17:26 | Outpatient (CLI) | payer MEDICAID ==
[~2021-02-18] VITALS: Ht 157.5 cm; Wt 114.0 kg
[2021-02-18 18:00] VITALS: BP 122/73; PULSE 65; TEMP 97.7
--- NOTE | 2021-02-18 18:20 | NUR ---
BEDSIDE REPORT RECEIVED FROM JOCELIN RN AND CARE WAS ASSUMED AT THIS TIME. PLAN OF CARE DISCUSSED AND PT VERBALIZED AN UNDERSTANDING. PT DENIES FURTHER NEEDS AT THIS TIME
[2021-02-18 18:30] VITALS: BP 118/61; BP 123/67; PULSE 53; PULSE 59
--- NOTE | 2021-02-18 18:30 | NUR ---
20G IV PLACED IN PT'S RIGHT HAND AFTER SECOND ATTEMPT.
--- NOTE | 2021-02-18 18:56 | NUR ---
LR BOLUS STARTED AT 999ML/HR, PT DENIES BURNING AT SITE AND SITE IS CLEAR OF REDNESS OR SWELLING. 0.25MG TERBUTALINE ADMINISTERED IN PT'S BACK OF UPPER LEFT ARM
[2021-02-18 19:00] VITALS: BP 134/66; PULSE 92; TEMP 97.9
--- NOTE | 2021-02-18 19:20 | NUR ---
PT RESTING IN BED WATCHING TV, NO SIGNS OF DISTRESS. PT STATES SHE HAS FELT 1-2 CONTRACTIONS SINCE TERTUBALINE INJ BUT STATES THEY "AREN'T PAINFUL". ABDOMEN PALPATES SOFT. PT DENIES FURTHER NEEDS
[2021-02-18 19:30] VITALS: BP 137/65; PULSE 62
[2021-02-18 20:00] VITALS: BP 132/66; PULSE 81
--- NOTE | 2021-02-18 20:00 | NUR ---
1950- IV LR BOLUS COMPLETED AT THIS TIME AND IV DISCONTINUED. PRESSURE DRESSING APPLIED 2000- DISCHARGE INSTRUCTIONS GIVEN AND LABOR PRECAUTIONS PROVIDED, PT VERBALIZED AN UNDERSTANDING AND DENIES FURTHER QUESTIONS. PT GIVEN COPY OF DISCHARGE INSTRUCTIONS
--- NOTE | 2021-02-18 20:05 | NUR ---
PT DISCHARGED TO HOME IN STABLE, UNDELIVERED CONDITION. PT AMBULATED OFF UNIT AT THIS TIME
== END 2021-02-18 20:05 | disposition home or self-care (01) ==
LOC: LDRO 17:26 → LDR 17:44 → LDRO 17:44 → LDR 20:05
DX: O62.9 Abnormality of forces of labor, unspecified (principal); Z3A.35 35 weeks gestation of pregnancy
CPT/HCPCS: J3105; J7120

== ENCOUNTER 2021-02-22 20:52 | Outpatient (CLI) | payer MEDICAID ==
[~2021-02-22] VITALS: Ht 157.5 cm; Wt 113.6 kg
[2021-02-22 21:30] VITALS: BP 127/60; PULSE 78; TEMP 98.8
--- NOTE | 2021-02-22 22:51 | NUR ---
2100 - 31 YO AT 36.2 WKS GESTATION TO LDR3 WITH C/O POSSIBLE SROM ABOUT 2000 TONIGHT. PT REPORTS FEW IRREG CTXS THAT SHE HAS BEEN HAVING FOR THE LAST 2 WEEKS. DENIES ANY VAGINAL BLEEDING AND REPORTS GOOD ACTIVITY TODAY
--- NOTE | 2021-02-22 23:16 | NUR ---
2157 - PRINTED DISCHARGE INSTRUCTIONS TAKEN IN TO PT. PT STATES, JUST LET ME SIGN SO I CAN GO. PT SIGNS INSTRUCTIONS AND RETURNS PRINTED INSTRUCTIONS TO THIS RN, AND STATES "I DONT NEED THIS, ITS THE SAME THING YOU GUYS TELL ME EVERY TIME" 2199 - PT AMBULATES OFF UNIT WITH SISTER IN STABLE CONDITION
== END 2021-02-22 22:00 | disposition home or self-care (01) ==
LOC: LDRO 20:52 → LDR 21:19 → LDRO 22:00
DX: Z34.93 Encounter for supervision of normal pregnancy, unspecified, third trimester (principal); Z3A.36 36 weeks gestation of pregnancy
CPT/HCPCS: OP

== ENCOUNTER 2021-02-26 17:44 | Outpatient (CLI) | payer MEDICAID ==
[~2021-02-26] VITALS: Ht 157.5 cm; Wt 113.6 kg
--- NOTE | 2021-02-26 18:13 | NUR ---
174: PT. BROUGHT TO UNIT VIA WHEELCHAIR BY SISTER. ESCORTED TO LR 6 FOR C/O CTX "THAT JUST DONT GO AWAY". PT. ORIENTED TO UNIT, CLEAN GOWN ON, EFM/TOCO APPLIED TO BELLY, VS OBTAINED, ASSESSMENTS COMPLETED, SVE 3-4/50/-3. POC DISCUSSED W/ PT. PT. HAS NO QUESTIONS/CONCERNS AT THIS TIME. WILL UPDATE DR. WILEY (FOOTBALL COACH).
[2021-02-26 18:30] VITALS: BP 139/71; PULSE 102; TEMP 98
[2021-02-26 18:50] VITALS: BP 124/70; PULSE 90
[2021-02-26 19:00] VITALS: BP 125/69; PULSE 85
[2021-02-26 19:15] VITALS: BP 127/71; PULSE 90
== END 2021-02-26 19:30 | disposition home or self-care (01) ==
LOC: LDRO 17:44 → LDR 17:45 → LDRO 19:30
DX: O62.9 Abnormality of forces of labor, unspecified (principal); Z3A.36 36 weeks gestation of pregnancy
CPT/HCPCS: OP

== ENCOUNTER 2021-03-01 19:21 | Inpatient (IN) | payer MEDICAID ==
[~2021-03-01] VITALS: Ht 157.5 cm; Wt 113.2 kg
[2021-03-01] VITALS (8 sets, daily range): BP systolic 113–134; BP diastolic 55–75; PULSE 57–76; TEMP 98.2
--- NOTE | 2021-03-01 19:30 | NUR ---
G5L2. 37-2. Pt wheeled to LDR 6 with sister. Clean gown on. EFM and TOCO explained and applied. Pt states she has been consistently been having contractions every 3 mins since 1800 but states they are getting more intense now. Reports bloody show in her urine when she went to the restroom last. Denies leaking of fluids. Reports good movement. Plan of care explained. 1939: SVE /-1. Bulgy bag and bloody show noted on exam. 1949: notified and orders to watch pt for one hour received. Pt updated on plan of care and new orders. Pt and sister verbalize their understanding.
--- NOTE | 2021-03-01 20:34 | NUR ---
Patient's sister comes out of the room and states "her water broke and the baby is in the toilet". This nurse and PETROS Brock enter the room. Upon entering the bathroom, the patient is squatting over the toilet and the baby is seen in the toilet with legs pointed toward the bottom of the toilet bowl with the head above water. Baby spontaneously crying and lifted out the toilet by this nurse. Baby handed to PETROS Brock and wrapped in warm blankets. Patient and baby assisted back to bed. Cord clamped and cut and baby taken to the radiant warmer and to the care of PETROS Brock. Time of delivery reported by patient's sister is 2033. RNs arrival to room within 1 minute of age. 2035 PETROS De León to room and assumes care of patient. 2039 Dr. Montes called and notified, already in route to the hospital.
--- NOTE | 2021-03-01 20:36 | NUR ---
This RN to take over care of pt. 2039: IV started and labs obtained. 2050: at bedside for delivery of placenta. 2053: Spontaneous delivery of intact placenta by . Pitocin started at 333mus/hr per protocol. Fundal message completed by provider. Perineum intact. Pericare provided. pads and changed and pt repostioned in bed. Plan of care and safety precautions explained to pt and sister who verbalize their understanding. Call light within reach.
[2021-03-01 23:10] LABS: BASO % 0.2 % (0.0-2.0); EOS # 0.1 K/mm3 (0.0-0.7); EOS % 0.5 % (0.0-4.0); GRAN # 11.5 K/mm3 (1.4-6.5); GRAN % 72.9 % (42.2-75.2); HEMOGLOBIN 12.1 g/dl (12.5-16.0); LYMPH # 3.3 K/mm3 (1.2-3.4); LYMPH % 20.9 % (20.0-51.0); MEAN CELL VOLUME 89 fl (80.0-100.0); MEAN CORPUSCULAR HEMOGLOBIN 30 pg (27-31); MEAN CORPUSCULAR HGB CONC 34 g/dl (33.0-37.0); MEAN PLATELET VOLUME 12.3 fl (7.4-10.4); MONO # 0.8 K/mm3 (0.1-0.6); MONO % 5.1 % (1.7-9.3); PLATELET COUNT 198 K/mm3 (130-400); REDCELL DISTRIBUTION WIDTH-CV 13.7 % (11.5-14.5)
[2021-03-01 23:18] LABS: HEMATOCRIT 35.6 % (37.0-47.0)
--- NOTE | 2021-03-01 23:30 | NUR ---
Pt assisted to edge of bed. Denies lightheadedness or dizziness. Pt ambualtory to bathroom. Pt able to void. Pericare explained and completed. Pt ambulatory and oriented to room. Plan of care explained.
[2021-03-02 00:30] VITALS: BP 108/56; PULSE 50; TEMP 98
[2021-03-02 04:15] VITALS: BP 97/58; PULSE 55; TEMP 97.7
[2021-03-02 07:00] VITALS: BP 131/77; PULSE 63; TEMP 97.6
[2021-03-02 13:00] VITALS: BP 113/53; PULSE 56; TEMP 97.5
[2021-03-02 16:57] VITALS: BP 107/64; PULSE 65; TEMP 97.5
[2021-03-02 20:00] VITALS: BP 106/52; PULSE 55; TEMP 98.1
[2021-03-03 07:30] VITALS: BP 111/64; PULSE 59; TEMP 97.4
[2021-03-03] MEDS ORDERED: IBU600 MG PO (09:12)
[2021-03-03 11:30] VITALS: BP 115/64; PULSE 62; TEMP 97.6
[2021-03-03 15:31] VITALS: BP 111/70; PULSE 59; TEMP 98.1
--- NOTE | 2021-03-03 16:28 | NUR ---
ALL DC PAPERWORK REVIEWED AND UNDERSTOOD WELL PHONE NUMBERS TO CALL AND SCHEDULE FOLLOW UP APPOINTMENTS. [facility] CLOSED TODAY DUE TO JANINE. ALL MEDICATIONS AND DC INSTRUCTIONS UNDERSTOOD. VITAL SIGNS STABLE ON MOTHER AND . SECURED SAFELY AND APPROPRIATELY IN CAR SEAT. PT DENIES FURTHER QUESTIONS OR CONCERNS. FINISHING PACKING UP ROOM NOW AND PLANNING TO DC UNIT SHORTLY.
== END 2021-03-03 16:45 | disposition home or self-care (01) | DRG 807 ==
LOC: LDRO 19:21 → OB 21:08 → LDR 21:08 → OB 03-02 02:20
PROVIDERS: Obstetrics & Gynecology; ADMIT Obstetrics & Gynecology
PROC: 10E0XZZ Delivery of Products of Conception, External Approach (ICD-10-PCS; principal; 2021-03-01)
DX: O99.02 Anemia complicating childbirth (principal); Z37.0 Single live birth; D64.9 Anemia, unspecified; O99.214 Obesity complicating childbirth; O99.344 Other mental disorders complicating childbirth; F32.A Depression, unspecified; O99.824 Streptococcus B carrier state complicating childbirth; Z3A.37 37 weeks gestation of pregnancy; Z23 Encounter for immunization
CPT/HCPCS: J2590; J7120

== ENCOUNTER 2022-03-06 14:12 | Outpatient (CLI) | payer MEDICAID ==
[~2022-03-06] VITALS: Ht 157.5 cm; Wt 110.9 kg
--- NOTE | 2022-03-06 14:45 | NUR ---
1420- Pt arrives on unit ambulatory, into bathroom to provide urine sample and change into gown. 1425- Pt into bed. EFM and TOCO on and tracing well. VSS O2 sat monitor on and tracing maternal HR. Pt complains of intermittent vaginal pressure which she describes as "contractions" but denies cramping, possible SROM but not currently leaking fluid, left back pain, and decreased movement. States she last felt baby move around 0830 this morning. VSS. 1432- Amniotrace negative, SVE cervix closed and high. No discharge noted with exam. Assessments completed. Pt states she had a UA done at her last office visit and it was normal. No UCs noted on monitor or palpated by RN. 1450- Pt states that she has now felt baby move multiple times since being on the monitor. movement also heard by this RN on monitor.
[2022-03-06] MEDS ORDERED: TYLENOL 500MG500 MG PO (14:47)
[2022-03-06 15:10] VITALS: BP 138/74; PULSE 98
[2022-03-06 15:28] VITALS: BP 112/68; PULSE 105; TEMP 97.4
--- NOTE | 2022-03-06 15:30 | NUR ---
1510- Pt updated on plan to discharge home. EFM and TOCO off. Pt up to change into street clothes. 1530- Discharge paperwork provided and explained. Pt denies questions at this time. Pt ambulates off unit in stable condition.
[2022-04-21] MEDS ORDERED: PRENATAL TABLET PO (15:58)
== END 2022-03-06 15:30 | disposition home or self-care (01) ==
LOC: LDRO 14:12 → LDR 14:48 → LDRO 15:30
DX: O26.893 Other specified pregnancy related conditions, third trimester (principal); R10.2 Pelvic and perineal pain; Z3A.33 33 weeks gestation of pregnancy
CPT/HCPCS: OP

== ENCOUNTER 2022-04-22 10:18 | Outpatient (CLI) | payer MEDICAID ==
[~2022-04-22] VITALS: Ht 157.5 cm; Wt 109.5 kg
[~2022-04-22 10:18] MED LIST changes: +PRENATAL TABLET PO; +TYLENOL 500MG500 MG PO
--- NOTE | 2022-04-22 10:25 | NUR ---
1025 - PATIENT AMBULATORY TO LABOR ROOM 4. PATIENT ORIENTED TO ROOM. PATIENT CHANGES INTO GOWN. 1030 - PATIENT ON MONITOR. PATIENT REPORTS BLOODY SHOW AND CONTRACTIONS. PATIENT DENIES LEAKING OF FLUID. PATIENT REPORTS GOOD MOVEMENT. 1038 - SVE PERFORMED BY PETROS SANTILLAN. 4-/-2. VERTEX. BALLOTABLE. EXAM RELATIVELY UNCHANGED FROM LABOR CHECK YESTERDAY EVENING. PLAN OF CARE REVIEWED. PATIENT AGREEABLE TO PLAN. CARE ONGOING.
[2022-04-22 11:00] VITALS: BP 127/67; PULSE 84; TEMP 98.4
[2022-04-22 11:30] VITALS: PULSE 81
--- NOTE | 2022-04-22 11:30 | NUR ---
1130 - SVE PERFORMED BY THIS RN. /-2. VERY SMALL AMOUNT OF BLOODY SHOW NOTED FROM EXAM. MONITORING CONTINUES. 1202 - GOODPASTURE,DO NOTIFIED - SEE PHYSICIAN NOTIFICATION. DISCHARGE ORDERS RECEIVED. 1215 - DISCHARGE INSTRUCTIONS REVIEWED WITH PATIENT. PATIENT INSTRUCTED TO REMAIN WITH FAMILY IN [place] AND RETURN TO L&D UNIT IF SHE HAS LEAKING OF FLUID OR SIGNS OF ACTIVE LABOR OR CONTRACTIONS THAT ARE MORE INTENSE. PATIENT IS VERY UPSET ABOUT DISCHARGING. PATIENT STATES THAT SHE WILL NOT BE RETURNING TO DELIVERY HERE. THIS RN ATTEMPTS AGAIN TO DISCUSS PLAN WITH PATIENT AND PATIENT REQUESTS TO SIGN PAPERS AND LEAVE. 1220 - PATIENT AMBULATORY OFF UNIT.
[2022-04-22 12:00] VITALS: PULSE 78
--- NOTE | 2022-04-22 12:00 | NUR ---
1130 - PATIENT OFF MONITOR FOR BRP. PATIENT VOIDS. 1140 - PATIENT RETURNS TO BED. PATIENT ON MONITOR. FHR DIFFICULT TO TRACE RELATED TO MATERNAL POSITION AND BODY HABITUS. MONITOR ADJUSTED MULTIPLE TIMES. PATIENT REPOSITIONED AND MONITOR AGAIN ADJUSTED. 1207 - PATIENT OFF MONITOR FOR DISCHARGE.
--- NOTE | 2022-04-22 13:06 | NUR ---
CARE PROVIDED BY AND DOCUMENTATION RECORDED BY PETROS ZUNIGA OBSERVED AND REVIEWED BY THIS RN. EDITS MADE NECESSARY.
== END 2022-04-22 12:20 | disposition home or self-care (01) ==
LOC: LDRO 10:18
DX: Z34.90 Encounter for supervision of normal pregnancy, unspecified, unspecified trimester (principal); Z3A.00 Weeks of gestation of pregnancy not specified